=== PATIENT | male | born 1975 | race Caucasian/White ===

== ENCOUNTER → 2021-11-02 09:01 | Outpatient (CLI) | payer OTHER, SELFPAY ==
--- NOTE | ~2021-11-02 | CT_ITS ---
EXAMINATION: CT abdomen pelvis w con DATE: 11/02/2021 09:19 INDICATION: Right lower quadrant abdominal pain. TECHNIQUE: Computed tomography (CT) of the abdomen and pelvis was performed with 100 mL Omnipaque 350 intravenous contrast. Automated exposure control and iterative reconstruction technique were employe d. The dose-length product was 601.51 mGy-cm. COMPARISON: CT abdomen and pelvis 10/25/2017 FINDINGS: The visualized portions of the lung bases demonstrate mild atelectasis. There is a 3 mm nod ule left lower lobe. No pleural effusion. The heart size is normal. No pericardial effusion. There is a 12 mm hypoattenuated mass in right hepatic lobe, which is chronic, likely benign. There is a 3 mm cyst in the liver. The gallbladder, pancreas, and adrenal glands are normal. Calcifications in the sp mallory are consistent with old granulomatous disease. The right kidney is normal. There is an 11 mm cys t in left kidney. There are no dilated loops of bowel. The appendix is not visualized. There are no p athologically enlarged lymph nodes. There is no free intraperitoneal fluid. There is mild thoracolumb ar spondylosis. IMPRESSION: 1. No etiology for the patient's symptoms. Reviewed, dictated and finalized at location A.
== END ==
PROVIDERS: PCP Family Medicine Adolescent Medicine; Visit Provider Physician Assistant
DX: R10.31 Right lower quadrant pain (principal); G89.29 Other chronic pain
CPT/HCPCS: 74177; Q9967

== ENCOUNTER 2022-04-05 09:45 | Outpatient (CLI) | payer OTHER, SELFPAY ==
--- NOTE | ~2022-04-05 | XR_ITS ---
EXAMINATION: XR small bowel follow through DATE: 04/05/2022 10:50 INDICATION: Diarrhea, right lower quadrant abdominal pain TECHNIQUE: [employer] radiograph(s) of the abdomen was/were obtained. Oral contrast was administered, and sequential radiographs of the abdomen were obtained until oral contrast was noted to be in the proxi mal colon. Spot fluoroscopic images of the small bowel were obtained. Fluoroscopy exposure time was 2 .4 minutes. The DAP for this procedure was 33.64 Gycm2. COMPARISON: None. FINDINGS: The bowel gas pattern is normal. There are no dilated loops of bowel. Right upper quadrant calcifications consistent with old granulomatous disease of the spleen. Transit time from the stomach to proximal colon was approximately 15 minutes. There is normal caliber and mucosal fold pattern thr oughout the small bowel. Terminal ileum is normal. No tethering or abnormal mass effect observed up on the small bowel with real-time fluoroscopy. IMPRESSION: 1. Unremarkable small bowel follow-through. Reviewed, dictated and finalized at location A.
== END 2022-04-05 09:46 | disposition home or self-care (01) ==
PROVIDERS: PCP Family Medicine Adolescent Medicine; Visit Provider Nurse Practitioner Family
DX: R10.9 Unspecified abdominal pain (principal); R19.7 Diarrhea, unspecified
CPT/HCPCS: 74250

== ENCOUNTER 2022-04-20 11:29 | Day surgery (SDC) | payer OTHER, SELFPAY ==
[2022-04-16 11:12] VITALS: BMI 28.0
[2022-04-16 14:14] VITALS: BMI 25.7
[2022-04-20 11:48] VITALS: BP 134/94; PULSE 76; RESP 14; TEMP 36.2; O2SAT 100; BMI 26.7
[2022-04-20] MEDS: LACTATED RINGERS 1,000 ML 150 ML IV CONT (12:01)
--- NOTE | 2022-04-20 12:01 | WPDANESEPPF ---
Anes - Initial Pre Proc Eval Procedure: Operation Date: 04/20/22 13:00 Proposed Procedures p Diagnostic Colonoscopy - Casimiro Cash MD Date/Time: 04/20/22 12:01 Surgeon: Casimiro Cash MD Pre Op Diagnosis: Diarrhea Patient Data Age: 47 Gender: M Height: 1.75 m Weight: 82.2 kg Last Vital Signs Temp 36.2 C L 04/20/22 11:48 Pulse 76 04/20/22 11:48 Resp 14 04/20/22 11:48 BP 134/94 H 04/20/22 11:48 Pulse Ox 100 04/20/22 11:48 O2 Del Method Room Air 04/20/22 11:48 Allergies Allergy/AdvReac Type Severity Reaction Status Date / Time Sulfa (Sulfonamide Allergy Severe HIVES, Verified 04/20/22 11:46 Antibiotics) DIFFICULTY BREATHING Home Medications Medication Instructions Recorded Confirmed Type escitalopram oxalate 10 mg tablet 10 mg PO DAILY 10/27/21 04/20/22 History omeprazole magnesium 20 mg 20 mg PO DAILY 10/27/21 04/20/22 History capsule,delayed release eluxadoline 75 mg tablet (Viberzi) 75 mg PO BID #60 tabs 11/13/21 04/20/22 Rx rosuvastatin 5 mg tablet 5 mg PO DAILY #30 tabs 12/28/21 04/20/22 Rx dicyclomine 10 mg capsule 10 mg PO TID PRN abdominal 03/24/22 04/20/22 Rx discomfort 1 month #90 caps Patient hx anesthesia problems: none Family hx anesthesia problems: none Results Review: All pre-operative results and documents have been reviewed as part of the pre-operative evaluation. [facility] Past Medical History Medical History Anxiety Depression Dog bite GERD (gastroesophageal reflux disease) Hypercholesterolemia Irritable bowel syndrome with diarrhea Prediabetes Ruptured ear drum Bilateral Surgical History Surgical History History of right inguinal hernia repair 09/2020 Family History Family History Mother Hypertension Father Depression Heart disease Other Diabetes mellitus Social History Social History Smoking packs per day: 1 Smoking cigarettes per day: 20.0 Years smoked: 7 Smoking pack-years: 7.00 Smoking status: Former smoker Tobacco type: cigarettes Second hand tobacco smoke exposure: No Smoking end date: 08/22/94 Alcohol intake: current Alcohol use details: social Substance use: never Substance use type: does not use Living arrangements: with family Additional occupation/education comments: Home [employer] Gender identity (if verbalized by the patient): Male Sexual Orientation (if Verbalized by the Patient): Straight or Heterosexual Spiritual care concerns: No Agree to blood products: Yes Anes - Eval Final PreProcedure Day of Procedure 04/20/22 12:01 Patient weight: overweight Heart: regular rate and rhythm Lungs: clear to auscultation Airway: Mallampati scale class II Neurological: alert and oriented Last oral intake: >/= 8 hours ASA classification: II Emergent: no Anesthetic plan: proceed Anesthesia type and monitoring: general GIVS and standard monitoring Results Review: All pre-operative results and documents have been reviewed as part of the pre-operative evaluation. Informed Consent: The patient's anesthetic plan and its attendant risks and benefits were discussed with the patient/family/POA. Questions were solicited and answers provided to the satisfaction of the patient/family/POA.
--- NOTE | 2022-04-20 12:29 | WPDHPUPDATE1 ---
History and Physical Update Update Date/Time: 04/20/22 12:29 History and Physical has been reviewed, including an updated exam of the patient. There are NO changes in the patient's condition. Risks, benefits, and alternatives have been discussed and questions answered. Patient agrees to proceed with procedure.
[2022-04-20 12:41] VITALS: BP 107/73; PULSE 76; RESP 20; O2SAT 95
[2022-04-20 12:51] VITALS: BP 106/71; PULSE 62; RESP 18; O2SAT 98
--- NOTE | 2022-04-20 13:00 | WPDANESPN ---
Anes - Prog Note Post-Op Date/Time: 04/20/22 13:00 Cardiovascular status: normal Respiratory status: normal Airway patency: baseline Mental status: baseline Post-Op hydration status: normal Vital Signs: Last Vital Signs Temp 36.2 C L 04/20/22 11:48 Pulse 62 04/20/22 12:51 Resp 18 04/20/22 12:51 BP 106/71 04/20/22 12:51 Pulse Ox 98 04/20/22 12:51 O2 Del Method Room Air 04/20/22 12:51 Pain Score (VAS): 0 I/O: Intake & Output 04/19/22 04/20/22 04/20/22 23:59 07:59 15:59 Intake Total 400 Balance 400 Patient Feedback: Patient satisfied with anesthetic care.
[2022-04-20 13:01] VITALS: BP 112/71; PULSE 62; RESP 17; O2SAT 98
== END 2022-04-20 13:25 | disposition home or self-care (01) ==
PROVIDERS: PCP Family Medicine Adolescent Medicine; Visit Provider Internal Medicine Gastroenterology
PROC: 0DJD8ZZ Inspection of Lower Intestinal Tract, Via Natural or Artificial Opening Endoscopic (ICD-10-PCS; CPT 45378; principal; 2022-04-20 13:00)
DX: K58.0 Irritable bowel syndrome with diarrhea (principal)
CPT/HCPCS: 45380

== ENCOUNTER 2022-04-20 13:00 | Outpatient (NON) | payer OTHER, SELFPAY | END 2022-04-20 13:01 | disposition home or self-care (01) | PROVIDERS: PCP Family Medicine Adolescent Medicine; Visit Provider Internal Medicine Gastroenterology | DX: K58.0 Irritable bowel syndrome with diarrhea (principal) | CPT/HCPCS: 88305 ==

== ENCOUNTER 2024-12-24 07:42 | Outpatient (CLI) | payer BC, SELFPAY ==
--- NOTE | ~2024-12-24 | US_ITS ---
Limited Abdominal Sonogram: Real-time sonographic imaging of the right upper quadrant was performed. Clinical History: Abnormal LFTs Findings: The liver may be minimally echogenic, with no evidence of mass lesion or bile duct dilatat ion. Main portal vein demonstrates normal direction of flow. The gallbladder is well distended, and a ppears normal with no evidence of gallstone or wall thickening. The common bile duct measures 4 mm. The visualized pancreas, aorta, and IVC are unremarkable. Impression: Possible diffuse fatty infiltration of the liver. Reviewed, dictated and finalized at location M. Impression: Possible diffuse fatty infiltration of the liver.
== END 2024-12-24 07:43 | disposition home or self-care (01) ==
LOC: MICIMG 07:44
PROVIDERS: PCP Family Medicine Adolescent Medicine
DX: R74.01 Elevation of levels of liver transaminase levels (principal)
CPT/HCPCS: 76705